=== PATIENT | male | born 1945 | race African-American/Black ===

== ENCOUNTER 2020-12-21 15:51 | Inpatient (IN) ==
[2020-12-21] MEDS ORDERED: 0.9 % Sodium Chloride 1,000 ML IVC ONE ×2 (17:13→21:31)
[2020-12-21 17:14] LABS: Alanine Aminotransferase 12 Units/L (7-52); Albumin 3.7 g/dL (3.5-5.7); Albumin/Globulin Ratio 1.2 (1.1-2.2); Alkaline Phosphatase 58 Units/L (34-104); Aspartate Amino Transferase 24 Units/L (13-39); BUN/Creatinine Ratio 22 (6-26); Bilirubin,Direct 0.2 mg/dL (0.0-0.2); Bilirubin,Indirect 0.8 mg/dL (0.0-1.0); Blood Urea Nitrogen 17 mg/dL (8-23); Calcium 9.4 mg/dL (8.6-10.3); Carbon Dioxide 29 mEq/L (23-29); Chloride 102 mEq/L (98-107); Glucose 88 mg/dL (70-105); Lipase 6 Units/L (11-82); Osmolality,Calculated 285 (280-300); Potassium 3.8 mEq/L (3.5-5.1); Sodium 137 mEq/L (136-145); Total Protein 6.7 g/dL (6.4-8.9); eGFR For African Americans > 60 (> 60); eGFR For Non-African Americans > 60 (> 60)
[2020-12-21 17:16] LABS: Hematocrit 32.3 % (37.5-50.1); Hemoglobin 10.4 g/dL (12.9-16.9); Immature Platelets 26.8 % (1.1-6.1); Mean Corpuscular HGB Conc 32.2 g/dL (31.6-35.5); Mean Corpuscular Hemoglobin 27.7 pg (28.0-33.3); Mean Corpuscular Volume 86.1 fL (83.0-100.0); Mean Platelet Volume 11.8 fL (9.4-12.4); Red Blood Count 3.75 M/mcL (4.19-5.50); Red Cell Distribution Width 14.6 % (11.5-14.5); White Blood Count 9.5 K/mcL (4.3-11.1)
[2020-12-21] MEDS ORDERED: Ondansetron 4 MG/2 ML VIAL IVP PRN (22:37)
[2020-12-22] MEDS ORDERED: D5% in Water 1,000 ML IVC PRN ×2 (05:05→16:43)
[2020-12-22] MEDS ORDERED: Dextrose Gel 15 GM/37.5 ML TUBE PO PRN ×4 (05:05→16:43)
[2020-12-22] MEDS ORDERED: *HR* Dextrose 50 % in Water (Syg) 50 ML SYRINGE IVP PRN ×2 (05:05→16:43)
[2020-12-22 05:22] LABS: BUN/Creatinine Ratio 25 (6-26); Blood Urea Nitrogen 16 mg/dL (8-23); Calcium 8.5 mg/dL (8.6-10.3); Carbon Dioxide 25 mEq/L (23-29); Chloride 107 mEq/L (98-107); Glucose 59 mg/dL (70-105); Osmolality,Calculated 285 (280-300); Potassium 4.1 mEq/L (3.5-5.1); Sodium 138 mEq/L (136-145); eGFR For African Americans > 60 (> 60); eGFR For Non-African Americans > 60 (> 60)
[2020-12-22 05:24] LABS: Phosphorous 2.7 mg/dL (2.7-4.5)
[2020-12-22 05:37] LABS: Thyroid Stimulating Hormone 1.557 mcIU/mL (0.340-5.600)
[2020-12-22 06:03] LABS: Basophils % 0.3 %; Eosinophils % 0.6 %; Immature Granulocytes % 0.2 % (0-4); Mean Corpuscular Volume 87.2 fL (83.0-100.0)
[2020-12-22 06:05] LABS: Hematocrit 30.1 % (37.5-50.1); Hemoglobin 9.8 g/dL (12.9-16.9); Immature Platelets 22.6 % (1.1-6.1); Lymphocytes # 1.3 K/mcL (0.6-4.6); Lymphocytes % 20.4 %; Mean Corpuscular HGB Conc 32.6 g/dL (31.6-35.5); Mean Corpuscular Hemoglobin 28.4 pg (28.0-33.3); Mean Platelet Volume 12.8 fL (9.4-12.4); Monocytes # 0.9 K/mcL (0.0-1.3); Monocytes % 13.1 %; Neutrophils # 4.3 K/mcL (1.6-8.9); Red Blood Count 3.45 M/mcL (4.19-5.50); Red Cell Distribution Width 15.2 % (11.5-14.5); Segmented Neutrophils % 65.4 %; White Blood Count 6.5 K/mcL (4.3-11.1)
[2020-12-22 07:06] LABS: Platelet Count 64 K/mcL (140-400)
[2020-12-22] MEDS ORDERED: *HR* FentaNYL (PF) 100 MCG/2 ML VIAL ONE (13:52)
[2020-12-22] MEDS ORDERED: *HR* Propofol 200 MG/20 ML VIAL IVP ONE (13:53)
[2020-12-22] MEDS ORDERED: *HR* Rocuronium Bromide 50 MG/5 ML VIAL ONE (14:52)
[2020-12-22] MEDS ORDERED: Lidocaine -MPF 2% 5 ML VIAL ONE (14:52)
[2020-12-22] MEDS ORDERED: *HR* Succinylcholine 200 MG/10 ML VIAL IVP ONE (14:52)
[2020-12-22] MEDS ORDERED: Ondansetron 4 MG/2 ML VIAL ONE (14:52)
[2020-12-22] MEDS ORDERED: *HR* OxyCODONE Immed Rel 5 MG TABLET PO PRN ×2 (15:27→16:43)
[2020-12-22] MEDS ORDERED: Sugammadex Sodium 200 MG/2 ML VIAL IV ONE (15:38)
[2020-12-22] MEDS ORDERED: Ondansetron 4 MG/2 ML VIAL IVP PRN (16:43)
[2020-12-22] MEDS ORDERED: Acetaminophen IV 1,000 MG/100 ML BAG IVPB SCH (18:00)
[2020-12-22] MEDS: amLODIPine 5 MG TABLET PO SCH (18:03)
[2020-12-22] MEDS: Acetaminophen IV 1,000 MG/100 ML BAG IVPB SCH (19:45)
[2020-12-22] MEDS ORDERED: Divalproex (24 HR) 500 MG TABLET PO SCH (21:00)
[2020-12-22] MEDS ORDERED: Divalproex (24 HR) 250 MG TABLET PO SCH (21:00)
[2020-12-22] MEDS: Divalproex (24 HR) 250 MG TABLET PO SCH (21:54)
[2020-12-22] MEDS: Dorzolamide/Timolol OPTH 10 ML BOTTLE BOTH EYES SCH (22:12)
[2020-12-23] MEDS: Atropine 1% Opth Drops 100 DROP/5 ML BOTTLE SL SCH ×4 (00:21→22:22)
[2020-12-23] MEDS: Acetaminophen IV 1,000 MG/100 ML BAG IVPB SCH ×4 (00:28→21:28)
[2020-12-23] MEDS: Valsartan 80 MG TABLET PO SCH (09:06)
[2020-12-23] MEDS: Cholecalciferol (D-3) 1,000 UNIT (25MCG) TABLET PO SCH (09:07)
[2020-12-23] MEDS: Finasteride 5 MG TABLET PO SCH (09:08)
[2020-12-23] MEDS: Dorzolamide/Timolol OPTH 10 ML BOTTLE BOTH EYES SCH ×2 (09:11→22:23)
[2020-12-23 11:24] LABS: Hematocrit 27.5 % (37.5-50.1); Mean Corpuscular HGB Conc 32.7 g/dL (31.6-35.5); Mean Corpuscular Volume 85.4 fL (83.0-100.0); Mean Platelet Volume 12.1 fL (9.4-12.4); Platelet Count 151 K/mcL (140-400); Red Blood Count 3.22 M/mcL (4.19-5.50); Red Cell Distribution Width 14.8 % (11.5-14.5); White Blood Count 5.9 K/mcL (4.3-11.1)
[2020-12-23 11:36] LABS: BUN/Creatinine Ratio 15 (6-26); Blood Urea Nitrogen 10 mg/dL (8-23); Calcium 8.4 mg/dL (8.6-10.3); Carbon Dioxide 28 mEq/L (23-29); Chloride 103 mEq/L (98-107); Glucose 103 mg/dL (70-105); Osmolality,Calculated 279 (280-300); Potassium 3.9 mEq/L (3.5-5.1); Sodium 135 mEq/L (136-145); eGFR For African Americans > 60 (> 60); eGFR For Non-African Americans > 60 (> 60)
[2020-12-23] MEDS: Latanoprost 2.5 ML BOTTLE BOTH EYES SCH (11:54)
[2020-12-23 12:25] LABS: Adenovirus Not Detected (Not Detect); Bordetella Pertussis Not Detected (Not Detect); Chlamydophila pneumoniae Not Detected (Not Detect); Coronavirus 229E Not Detected (Not Detect); Coronavirus HKU1 Not Detected (Not Detect); Coronavirus NL63 Not Detected (Not Detect); Coronavirus OC43 Not Detected (Not Detect); Human Metapneumovirus Not Detected (Not Detect); Human Rhinovirus/Enterovirus Not Detected (Not Detect); Influenza A Subtype 2009 H1 Not Detected (Not Detect); Influenza B Not Detected (Not Detect); Mycoplasma pneumoniae Not Detected (Not Detect); Parainfluenza Virus 1 Not Detected (Not Detect); Parainfluenza Virus 2 Not Detected (Not Detect); Parainfluenza Virus 3 Not Detected (Not Detect); Parainfluenza Virus 4 Not Detected (Not Detect); Respiratory Syncytial Virus Not Detected (Not Detect); SARS-CoV-2 Not Detected (Not Detect)
[2020-12-23 21:24] LABS: Alanine Aminotransferase 12 Units/L (7-52); Albumin 3.4 g/dL (3.5-5.7); Albumin/Globulin Ratio 1.2 (1.1-2.2); Alkaline Phosphatase 51 Units/L (34-104); Aspartate Amino Transferase 28 Units/L (13-39); BUN/Creatinine Ratio 15 (6-26); Bilirubin,Total 0.9 mg/dL (0.3-1.0); Blood Urea Nitrogen 10 mg/dL (8-23); Calcium 8.9 mg/dL (8.6-10.3); Carbon Dioxide 25 mEq/L (23-29); Chloride 103 mEq/L (98-107); Globulin 2.9 g/dL (2.4-3.5); Glucose 100 mg/dL (70-105); Osmolality,Calculated 283 (280-300); Potassium 3.8 mEq/L (3.5-5.1); Sodium 137 mEq/L (136-145); Total Protein 6.3 g/dL (6.4-8.9); eGFR For African Americans > 60 (> 60); eGFR For Non-African Americans > 60 (> 60)
[2020-12-23] MEDS: amLODIPine 5 MG TABLET PO SCH (21:34)
[2020-12-23] MEDS: Divalproex (24 HR) 250 MG TABLET PO SCH (21:42)
[2020-12-23 22:26] LABS: Hematocrit 29.4 % (37.5-50.1); Hemoglobin 9.5 g/dL (12.9-16.9); Immature Granulocytes % 0.3 % (0-4); Immature Platelets 20.3 % (1.1-6.1); Lymphocytes # 0.9 K/mcL (0.6-4.6); Lymphocytes % 14.1 %; Mean Corpuscular HGB Conc 32.3 g/dL (31.6-35.5); Mean Corpuscular Hemoglobin 27.9 pg (28.0-33.3); Mean Corpuscular Volume 86.2 fL (83.0-100.0); Mean Platelet Volume 12.7 fL (9.4-12.4); Monocytes # 1.6 K/mcL (0.0-1.3); Monocytes % 23.8 %; Neutrophils # 4.1 K/mcL (1.6-8.9); Red Blood Count 3.41 M/mcL (4.19-5.50); Red Cell Distribution Width 14.6 % (11.5-14.5); Segmented Neutrophils % 61.8 %; White Blood Count 6.7 K/mcL (4.3-11.1)
[2020-12-23 22:29] LABS: Platelet Clumps Few (Not Present); Platelet Count 61 K/mcL (140-400)
[2020-12-23 22:31] LABS: Platelet Estimate Decreased (Normal)
[2020-12-24] MEDS: Acetaminophen IV 1,000 MG/100 ML BAG IVPB SCH ×4 (04:33→22:42)
[2020-12-24 05:07] LABS: Bilirubin,Urine Negative (Negative); Blood,Urine Small (Negative); Clarity,Urine Clear (Clear); Color,Urine Yellow (Yellow); Glucose,Urine (UA) Normal (Normal); Hyaline Casts,Urine Few per lpf (None Seen); Ketones,Urine 10 mg/dL (Negative); Leukocyte Esterase,Urine Negative (Negative); Mucus,Urine Few per lpf (None-Few); Nitrite,Urine Negative (Negative); Protein,Urine Trace mg/dL (Neg-Trace); RBC,Urine 0-3 per hpf (0-3); Specific Gravity,Urine 1.025 (1.010-1.025); Squamous Epithelial Cell,Urine Few per hpf (None-Few); Urobilinogen,Urine Normal (Normal); WBC,Urine 0-3 per hpf (0-3)
[2020-12-24] MEDS: Cholecalciferol (D-3) 1,000 UNIT (25MCG) TABLET PO SCH (10:03)
[2020-12-24] MEDS: Finasteride 5 MG TABLET PO SCH (10:03)
[2020-12-24] MEDS: Valsartan 80 MG TABLET PO SCH (10:03)
[2020-12-24] MEDS: Atropine 1% Opth Drops 100 DROP/5 ML BOTTLE SL SCH ×3 (11:40→20:58)
[2020-12-24] MEDS: Dorzolamide/Timolol OPTH 10 ML BOTTLE BOTH EYES SCH ×2 (11:40→20:58)
[2020-12-24] MEDS ORDERED: cefTRIAXone 1,000 MG in Water for inj. (sterile) 10 ML IVP SCH (12:00)
[2020-12-24] MEDS ORDERED: Azithromycin 500 MG in 0.9 % Sodium Chloride 250 ML IVPB SCH (12:00)
[2020-12-24 13:00] LABS: Hematocrit 29.9 % (37.5-50.1); Hemoglobin 9.9 g/dL (12.9-16.9); Immature Platelets 29.5 % (1.1-6.1); Mean Corpuscular HGB Conc 33.1 g/dL (31.6-35.5); Mean Corpuscular Hemoglobin 28.4 pg (28.0-33.3); Mean Corpuscular Volume 85.9 fL (83.0-100.0); Mean Platelet Volume 13.2 fL (9.4-12.4); Red Blood Count 3.48 M/mcL (4.19-5.50); Red Cell Distribution Width 14.9 % (11.5-14.5); White Blood Count 9.2 K/mcL (4.3-11.1)
[2020-12-24 13:09] LABS: BUN/Creatinine Ratio 17 (6-26); Blood Urea Nitrogen 10 mg/dL (8-23); Calcium 8.7 mg/dL (8.6-10.3); Carbon Dioxide 25 mEq/L (23-29); Chloride 103 mEq/L (98-107); Glucose 83 mg/dL (70-105); Osmolality,Calculated 282 (280-300); Potassium 3.8 mEq/L (3.5-5.1); Sodium 137 mEq/L (136-145); eGFR For African Americans > 60 (> 60); eGFR For Non-African Americans > 60 (> 60)
[2020-12-24] MEDS: Latanoprost 2.5 ML BOTTLE BOTH EYES SCH (17:13)
[2020-12-24] MEDS: amLODIPine 5 MG TABLET PO SCH (18:17)
[2020-12-24 18:27] LABS: Adenovirus Not Detected (Not Detect); Coronavirus 229E Not Detected (Not Detect); Coronavirus HKU1 Not Detected (Not Detect)
[2020-12-24 18:28] LABS: Bordetella Pertussis Not Detected (Not Detect); Chlamydophila pneumoniae Not Detected (Not Detect); Coronavirus NL63 Not Detected (Not Detect); Coronavirus OC43 Not Detected (Not Detect); Human Metapneumovirus Not Detected (Not Detect); Human Rhinovirus/Enterovirus Not Detected (Not Detect); Influenza A Subtype 2009 H1 Not Detected (Not Detect); Influenza B Not Detected (Not Detect); Mycoplasma pneumoniae Not Detected (Not Detect); Parainfluenza Virus 1 Not Detected (Not Detect); Parainfluenza Virus 2 Not Detected (Not Detect); Parainfluenza Virus 3 Not Detected (Not Detect); Parainfluenza Virus 4 Not Detected (Not Detect); Respiratory Syncytial Virus Not Detected (Not Detect); SARS-CoV-2 Not Detected (Not Detect)
[2020-12-24] MEDS ORDERED: Divalproex Sodium 125 MG Sprinkle Capsule (DR) PO SCH (21:15)
[2020-12-24 22:57] LABS: VBG HCO3 24 mEq/L (21-27); VBG PCO2 31 mmHg (41-51); VBG PH 7.49 pH Units (7.32-7.42); VBG PO2 180 mmHg (25-50)
[2020-12-25] MEDS: SODIUM CHLORIDE 0.9% IVPB SCH ×3 (01:11→20:57)
[2020-12-25] MEDS: VALPROIC ACID IVPB SCH ×3 (01:11→20:57)
[2020-12-25] MEDS: Acetaminophen IV 1,000 MG/100 ML BAG IVPB SCH ×4 (04:45→22:53)
[2020-12-25 06:27] LABS: Hematocrit 33.1 % (37.5-50.1); Hemoglobin 10.4 g/dL (12.9-16.9); Mean Corpuscular HGB Conc 31.4 g/dL (31.6-35.5); Mean Corpuscular Hemoglobin 28.7 pg (28.0-33.3); Mean Corpuscular Volume 91.2 fL (83.0-100.0); Mean Platelet Volume 12.9 fL (9.4-12.4); Platelet Count 143 K/mcL (140-400); Red Blood Count 3.63 M/mcL (4.19-5.50); White Blood Count 12.9 K/mcL (4.3-11.1)
[2020-12-25 07:34] LABS: BUN/Creatinine Ratio 23 (6-26); Blood Urea Nitrogen 15 mg/dL (8-23); Calcium 8.6 mg/dL (8.6-10.3); Carbon Dioxide 22 mEq/L (23-29); Chloride 104 mEq/L (98-107); Glucose 61 mg/dL (70-105); Osmolality,Calculated 283 (280-300); Potassium 4.3 mEq/L (3.5-5.1); Sodium 137 mEq/L (136-145); eGFR For African Americans > 60 (> 60); eGFR For Non-African Americans > 60 (> 60)
[2020-12-25] MEDS: Dorzolamide/Timolol OPTH 10 ML BOTTLE BOTH EYES SCH ×2 (08:43→20:58)
[2020-12-25] MEDS: Atropine 1% Opth Drops 100 DROP/5 ML BOTTLE SL SCH ×2 (08:43→08:54)
[2020-12-25] MEDS: Valsartan 80 MG TABLET PO SCH (08:45)
[2020-12-25] MEDS: Cholecalciferol (D-3) 1,000 UNIT (25MCG) TABLET PO SCH (08:46)
[2020-12-25] MEDS: Finasteride 5 MG TABLET PO SCH (08:46)
[2020-12-25] MEDS: Latanoprost 2.5 ML BOTTLE BOTH EYES SCH (12:00)
[2020-12-25] MEDS ORDERED: *HR* Propofol 200 MG/20 ML VIAL IVP ONE (14:26)
[2020-12-25] MEDS ORDERED: *HR* FentaNYL (PF) 100 MCG/2 ML VIAL ONE (14:26)
[2020-12-25] MEDS ORDERED: Lidocaine -MPF 2% 5 ML VIAL ONE (14:27)
[2020-12-25] MEDS ORDERED: *HR* Succinylcholine 200 MG/10 ML VIAL IVP ONE (14:28)
[2020-12-25] MEDS ORDERED: Lidocaine -MPF 4% 5 ML AMPUL ONE (14:29)
[2020-12-25] MEDS ORDERED: Ondansetron 4 MG/2 ML VIAL ONE (15:02)
[2020-12-25] MEDS ORDERED: Ipratropium/Albuterol Neb 3 ML ONE (15:20)
[2020-12-25] MEDS: Ipratropium/Albuterol Neb 3 ML IH SCH ×2 (16:37→19:20)
[2020-12-25] MEDS: Piperacillin/Tazobactam 3.375 GM in 0.9 % Sodium Chloride Mini Bag 100 ML IVPB SCH (17:23)
[2020-12-25 18:06] LABS: Appearance of Body Fluid Cloudy (Clear); Volume of Body Fluid 25 mL
[2020-12-25] MEDS: amLODIPine 5 MG TABLET PO SCH (20:23)
[2020-12-25] MEDS: Chlorhexidine Rinse 15 ML MOUTHWASH MM SCH (21:02)
[2020-12-25] MEDS: Saliva Stimulant 44.3ml BOTTLE PO SCH ×2 (21:03→22:52)
[2020-12-26] MEDS: Piperacillin/Tazobactam 3.375 GM in 0.9 % Sodium Chloride Mini Bag 100 ML IVPB SCH ×3 (00:31→23:21)
[2020-12-26] MEDS: Saliva Stimulant 44.3ml BOTTLE PO SCH ×13 (00:33→21:08)
[2020-12-26] MEDS: Ipratropium/Albuterol Neb 3 ML IH SCH ×4 (04:05→20:41)
[2020-12-26] MEDS: Acetaminophen IV 1,000 MG/100 ML BAG IVPB SCH ×4 (04:05→21:05)
[2020-12-26 04:45] LABS: Hemoglobin 9.2 g/dL (12.9-16.9)
[2020-12-26 04:47] LABS: Basophils % 0.2 %; Hematocrit 27.9 % (37.5-50.1); Immature Granulocytes % 0.7 % (0-4); Immature Platelets 18.2 % (1.1-6.1); Lymphocytes # 1.1 K/mcL (0.6-4.6); Lymphocytes % 9.5 %; Mean Corpuscular Hemoglobin 28.2 pg (28.0-33.3); Mean Corpuscular Volume 85.6 fL (83.0-100.0); Mean Platelet Volume 13.4 fL (9.4-12.4); Monocytes # 1.2 K/mcL (0.0-1.3); Neutrophils # 9.2 K/mcL (1.6-8.9); Platelet Count 134 K/mcL (140-400); Red Blood Count 3.26 M/mcL (4.19-5.50); Red Cell Distribution Width 14.9 % (11.5-14.5); Segmented Neutrophils % 79.6 %; White Blood Count 11.5 K/mcL (4.3-11.1)
[2020-12-26 05:07] LABS: BUN/Creatinine Ratio 29 (6-26); Blood Urea Nitrogen 18 mg/dL (8-23); Calcium 8.8 mg/dL (8.6-10.3); Carbon Dioxide 26 mEq/L (23-29); Chloride 105 mEq/L (98-107); Glucose 93 mg/dL (70-105); Magnesium 1.8 mg/dL (1.6-2.6); Osmolality,Calculated 290 (280-300); Phosphorous 2.8 mg/dL (2.7-4.5); Sodium 139 mEq/L (136-145); eGFR For African Americans > 60 (> 60); eGFR For Non-African Americans > 60 (> 60)
[2020-12-26] MEDS: Levothyroxine Sodium 100 MCG VIAL IVP SCH (06:18)
[2020-12-26] MEDS: Chlorhexidine Rinse 15 ML MOUTHWASH MM SCH (09:45)
[2020-12-26] MEDS: Dorzolamide/Timolol OPTH 10 ML BOTTLE BOTH EYES SCH ×2 (09:46→20:23)
[2020-12-26] MEDS: Finasteride 5 MG TABLET PO SCH (09:49)
[2020-12-26] MEDS: Cholecalciferol (D-3) 1,000 UNIT (25MCG) TABLET PO SCH (09:49)
[2020-12-26] MEDS: VALPROIC ACID IVPB SCH (10:15)
[2020-12-26] MEDS: SODIUM CHLORIDE 0.9% IVPB SCH (10:15)
[2020-12-26] MEDS: Latanoprost 2.5 ML BOTTLE BOTH EYES SCH (11:23)
[2020-12-26] MEDS ORDERED: Atropine 1% Opth Drops 100 DROP/5 ML BOTTLE SL PRN (16:36)
[2020-12-26 16:37] LABS: ABG Base Excess 2 mEq/L (-2 to 3); ABG HCO3 27 mEq/L (21-27); ABG Oxygen Saturation 66 % (95-98); ABG PCO2 47 mmHg (35-45); ABG PH 7.37 pH Units (7.32-7.45); ABG PO2 35 mmHg (85-104); ABG TCO2 29 mEq/L (20-26)
[2020-12-26] MEDS ORDERED: Haloperidol Lactate 5 MG/ML VIAL IVP PRN (16:39)
[2020-12-26] MEDS ORDERED: Albuterol 2.5 MG/3 ML NEBULIZER ONE (16:40)
[2020-12-26] MEDS ORDERED: Ipratropium/Albuterol Neb 3 ML IH ONE (16:47)
[2020-12-26] MEDS ORDERED: Albuterol 2.5 MG/3 ML NEBULIZER IH ONE (16:47)
[2020-12-26] MEDS: *HR* LORazepam 2 MG/ML VIAL IVP PRN (17:33)
[2020-12-26] MEDS: Morphine Sulfate 2 MG/ML SYRINGE IVP PRN ×2 (17:36→21:19)
[2020-12-26] MEDS: Divalproex (24 HR) 250 MG TABLET PO SCH (23:20)
[2020-12-27] MEDS: Morphine Sulfate 2 MG/ML SYRINGE IVP PRN ×6 (00:15→15:47)
[2020-12-27] MEDS: Saliva Stimulant 44.3ml BOTTLE PO SCH ×8 (00:18→17:50)
[2020-12-27] MEDS: Ipratropium/Albuterol Neb 3 ML IH SCH ×4 (03:40→21:21)
[2020-12-27] MEDS: Acetaminophen IV 1,000 MG/100 ML BAG IVPB SCH ×3 (04:18→15:53)
[2020-12-27] MEDS: Levothyroxine Sodium 100 MCG VIAL IVP SCH (05:00)
[2020-12-27] MEDS: Dorzolamide/Timolol OPTH 10 ML BOTTLE BOTH EYES SCH (09:14)
[2020-12-27] MEDS: *HR* LORazepam 2 MG/ML VIAL IVP PRN ×2 (10:03→12:19)
[2020-12-27] MEDS ORDERED: Morphine Sulfate 2 MG/ML SYRINGE IVP PRN (12:18)
[2020-12-27] MEDS ORDERED: *HR* LORazepam 2 MG/ML VIAL IVP PRN (12:20)
[2020-12-27] MEDS: Latanoprost 2.5 ML BOTTLE BOTH EYES SCH (12:21)
[2020-12-28 07:52] VITALS: BP 100/51; PULSE 97; TEMP 97.7; O2SAT 97
== END 2020-12-27 18:20 | disposition expired | DRG 350 ==
LOC: 3ANU 15:51 → EMEROOARM 15:51 → SUATTDRO 18:48 → 3ANU 19:31 → UNDODISOB 12-23 14:20 → 3ANU 12-23 18:09 → SUATTDRO 12-24 13:13 → 2ANU 12-26 18:20
PROVIDERS: ADMIT Internal Medicine; ATTEND Family Medicine